=== PATIENT | male | born 1960 | race African-American/Black ===

== ENCOUNTER 2017-07-12 08:27 | Emergency (ER) | payer OTHER ==
[~2017-07-12] VITALS: Ht 188 cm; Wt 122.0 kg
[~2017-07-12 08:27] MED LIST: AMLODIPINE BESY10 M1 PO; ATENOLOL25 MG; ATENOLOL50 MG PO; COZAAR25 MG PO; HYDROCODONE/ACE1 TA6 PO; LOR; OMEPRAZOLE40 M1 PO; RESTORIL30 MG PO; SIMVASTATIN10 M1 PO; VIMOVO
[2017-07-12 14:56] VITALS: BP 132/70
== END 2017-07-12 14:56 | disposition home or self-care (01) ==
LOC: ED 08:27
DX: M50.023 Cervical disc disorder at C6-C7 level with myelopathy (principal); G44.209 Tension-type headache, unspecified, not intractable; I10 Essential (primary) hypertension
CPT/HCPCS: J1100; J1885